=== PATIENT | female | born 1945 | race Hispanic/Latino ===

== ENCOUNTER 2017-10-16 09:51 | Observation (INO) | payer OTHER ==
[~2017-10-16] VITALS: Ht 167.6 cm; Wt 84.4 kg
[2017-10-16 10:36] LABS: APPEARANCE,URINE Clear (CLEAR); BILIRUBIN,URINE Negative (NEGATIVE); COLOR,URINE Yellow (YELLOW); GLUCOSE, URINE (UA) >=1000 mg/dL (NEGATIVE); KETONES,URINE Negative (NEGATIVE); LEUKOCYTE ESTERASE ,URINE Negative (NEGATIVE); NITRATE,URINE Negative (NEGATIVE); OCCULT BLOOD,URINE Nonhemolyzed Trace (NEGATIVE); PH,URINE 5.5 (5.0-8.0); PROTEIN,URINE 300 (NEGATIVE); UROBILINOGEN,URINE 0.2 mg/dL (0.2-1.0)
[2017-10-16 10:44] LABS: BASOPHILS % (AUTO) 0.8 % (0.0-5.0); EOSINOPHILS % (AUTO) 0.9 % (0.0-8.0); HEMATOCRIT 38.1 % (36-48); LYMPHOCYTES % (AUTO) 19.1 % (21.0-51.0); MEAN CORPUSCULAR HEMOGLOBIN 30.1 pg (27.0-33.0); MEAN CORPUSCULAR HGB CONC 33.3 g/dL (32.0-36.0); MEAN CORPUSCULAR VOLUME 90.6 fL (79-99); MONOCYTES % (AUTO) 7.1 % (3.0-13.0); NEUTROPHILS % (AUTO) 72.1 % (40.0-77.0); NUCLEATED RED BLOOD CELLS 0.1 % (0.0-0.19); PLATELET COUNT (AUTO) 362 K/uL (130-400); RED BLOOD CELL COUNT(AUTO) 4.21 MIL/uL (4.00-5.50); RED CELL DISTRIBUTION WIDTH 12.9 % (11.0-15.5); WHITE BLOOD COUNT (AUTO) 10.5 K/uL (4.8-10.8)
[2017-10-16 10:51] LABS: CREATININE 1.4 mg/dL (0.5-1.5)
[2017-10-16 10:56] LABS: INR 0.89 (0.85-1.15); PARTIAL THROMBOPLASTIN TIME 23.4 SEC (26.3-35.5); PROTHROMBIN TIME 9.4 SEC (9.6-11.6)
[2017-10-16 11:07] LABS: ALBUMIN 3.7 g/dL (3.5-5.0); BILIRUBIN,TOTAL 0.4 mg/dL (0.2-1.0); CREATINE KINASE MB 0.6 ng/mL (0.5-3.6); TOTAL PROTEIN, SERUM 7.8 g/dL (6.0-8.3)
[2017-10-16 11:14] LABS: B-TYPE NATRIURETIC PEPTIDE 43 pg/mL (0-100)
[2017-10-16 11:19] LABS: RBC,URINE 0-1 /HPF (0-1); WBC,URINE 0-1 /HPF (0-1)
[2017-10-16 11:20] LABS: BACTERIA,URINE Few /HPF (None Seen)
[2017-10-16] MEDS ORDERED: SODIUM CHLORIDE 0.9% 1000ML 1,000 ML IV SCH (13:58)
[2017-10-16] MEDS ORDERED: ACETAMINOPHEN 325 MG TAB PO PRN (14:00)
[2017-10-16] MEDS ORDERED: HYDRALAZINE HCL 20 MG/ML VIAL IV PRN (14:00)
[2017-10-16] MEDS ORDERED: LACTULOSE 20 GM/30 ML UDCUP PO PRN (14:00)
[2017-10-16] MEDS ORDERED: MORPHINE SULFATE 2 MG/ML 1ML SYG IV PRN (14:00)
[2017-10-16] MEDS ORDERED: POTASSIUM CHLORIDE 10% ELIXIR 20 MEQ/15 ML UDCUP PO PRN (14:00)
[2017-10-16] MEDS ORDERED: LIDOCAINE HCL-MPF 1% 2ML VIAL IVP PRN (14:00)
[2017-10-16] MEDS ORDERED: ONDANSETRON HCL 4 MG/2 ML VIAL IV PRN (14:00)
[2017-10-16] MEDS ORDERED: MAG HYDROX/AL HYDROX/SIMETH ES 30 ML SUSP UDCUP PO PRN (14:00)
[2017-10-16] MEDS ORDERED: GUAIFENESIN-DM 200/20 MG 10 ML PO PRN (14:00)
[2017-10-16] MEDS ORDERED: NITROGLYCERIN 0.4 MG SL TAB SL PRN (14:00)
[2017-10-16] MEDS ORDERED: MORPHINE SULFATE 4 MG/1ML SYG IV PRN (14:00)
[2017-10-16] MEDS ORDERED: POTASSIUM CHLORIDE 20MEQ/100ML 100 ML IV PRN (14:00)
[2017-10-16] MEDS ORDERED: ACETAMINOPHEN-CODEINE 300/30MG TAB PO PRN ×2 (14:00)
[2017-10-16 18:42] VITALS: BP 159/82
[2017-10-16 18:43] LABS: CREATINE KINASE MB < 0.5 ng/mL (0.5-3.6); CREATINE KINASE, TOTAL 159 U/L (21-232); MYOGLOBIN 61 ng/mL (10-92); TROPONIN I < 0.04 ng/mL (0.00-0.06)
[2017-10-16] MEDS ORDERED: GABA-531 PO (18:59)
[2017-10-16] MEDS ORDERED: INSLAN SQ (18:59)
[2017-10-16] MEDS ORDERED: METO-391 PO (18:59)
[2017-10-16] MEDS ORDERED: THIAM100TB PO (18:59)
[2017-10-16] MEDS ORDERED: HYDR25TA PO (18:59)
[2017-10-16] MEDS ORDERED: MAGN250T10 PO (18:59)
[2017-10-16] MEDS ORDERED: ACAR50TA PO (18:59)
[2017-10-16] MEDS ORDERED: OMEP20CA10 PO (18:59)
[2017-10-16] MEDS ORDERED: ASCO500C18 PO (18:59)
[2017-10-16] MEDS ORDERED: FLAX100030 PO (18:59)
[2017-10-16] MEDS ORDERED: IRON-23 PO ×2 (18:59)
[2017-10-16] MEDS ORDERED: LIRA0.6P2 SQ (18:59)
[2017-10-16] MEDS ORDERED: SIMV40TA5 PO (18:59)
[2017-10-16] MEDS ORDERED: LISI10TA7 PO (18:59)
[2017-10-16] MEDS ORDERED: OMEG1CAP2 PO (18:59)
[2017-10-16] MEDS ORDERED: CYAN250014 PO (18:59)
[2017-10-16] MEDS ORDERED: CHOL200012 PO (18:59)
[2017-10-16 20:00] VITALS: BP_SYST 141; BP_SYST 142; BP_SYST 172; BP_DIAS 74; BP_DIAS 77; BP_DIAS 93
[2017-10-16] MEDS: ATORVASTATIN CALCIUM 40 MG TABLET PO SCH (21:17)
[2017-10-16] MEDS: GABAPENTIN 300 MG CAPSULE PO SCH (21:17)
[2017-10-16] MEDS: METOPROLOL TARTRATE 25 MG TAB PO SCH (21:17)
[2017-10-16] MEDS: ACETAMINOPHEN 325 MG TAB PO PRN (21:23)
[2017-10-16] MEDS: INSULIN HUMULIN R 100 UNIT/ML 3ML SQ SCH (21:25)
[2017-10-16] MEDS: INSULIN GLARGINE 100 UNITS/ML 10 ML VIAL SQ SCH (21:27)
[2017-10-17] VITALS (10 sets, daily range): BP systolic 115–183; BP diastolic 48–85
[2017-10-17] MEDS: ACETAMINOPHEN 325 MG TAB PO PRN ×2 (05:02→21:47)
[2017-10-17 05:13] LABS: CREATININE 1.3 mg/dL (0.5-1.5); POTASSIUM 3.5 mmol/L (3.5-5.1)
[2017-10-17] MEDS: INSULIN HUMULIN R 100 UNIT/ML 3ML SQ SCH ×4 (06:24→21:09)
[2017-10-17] MEDS: FAMOTIDINE 20MG TAB 20 MG TAB PO SCH (07:43)
[2017-10-17] MEDS: METOPROLOL TARTRATE 25 MG TAB PO SCH ×2 (07:43→20:59)
[2017-10-17] MEDS: HYDROCHLOROTHIAZIDE 25 MG TABLET PO SCH (07:43)
[2017-10-17] MEDS: POTASSIUM CHLORIDE 20 MEQ ERTAB PO PRN ×2 (07:43→15:19)
[2017-10-17] MEDS: LISINOPRIL 10 MG TABLET PO SCH (07:43)
[2017-10-17] MEDS: ENOXAPARIN SODIUM 40 MG/0.4 ML SYRINGE SQ SCH (07:44)
[2017-10-17] MEDS: GABAPENTIN 300 MG CAPSULE PO SCH ×3 (07:46→20:59)
[2017-10-17] MEDS ORDERED: LISI10TA7 PO (10:36)
[2017-10-17] MEDS: ATORVASTATIN CALCIUM 40 MG TABLET PO SCH (20:59)
[2017-10-17] MEDS: INSULIN GLARGINE 100 UNITS/ML 10 ML VIAL SQ SCH (21:10)
[2017-10-18 00:14] VITALS: BP 100/52
[2017-10-18 03:39] VITALS: BP 109/54
[2017-10-18] MEDS: INSULIN HUMULIN R 100 UNIT/ML 3ML SQ SCH (06:48)
[2017-10-18 07:00] VITALS: BP 128/96
[2017-10-18] MEDS: METOPROLOL TARTRATE 25 MG TAB PO SCH (09:23)
[2017-10-18] MEDS: LISINOPRIL 10 MG TABLET PO SCH (09:23)
[2017-10-18] MEDS: HYDROCHLOROTHIAZIDE 25 MG TABLET PO SCH (09:23)
[2017-10-18] MEDS: GABAPENTIN 300 MG CAPSULE PO SCH (09:23)
[2017-10-18] MEDS: ENOXAPARIN SODIUM 40 MG/0.4 ML SYRINGE SQ SCH (09:24)
[2017-10-18] MEDS: FAMOTIDINE 20MG TAB 20 MG TAB PO SCH (09:26)
== END 2017-10-18 10:50 | disposition home or self-care (01) ==
LOC: EDH 09:51 → EDHIP 13:00 → 3DH 17:53
PROVIDERS: ADMIT Internal Medicine; ATTEND Internal Medicine
DX: R55 Syncope and collapse (principal); E11.9 Type 2 diabetes mellitus without complications; I10 Essential (primary) hypertension; E78.5 Hyperlipidemia, unspecified; Z80.0 Family history of malignant neoplasm of digestive organs; Z82.49 Family history of ischemic heart disease and other diseases of the circulatory system
CPT/HCPCS: 36415 ×2; 70450; 71045; 72125; 73020; 80048; 80053; 81001; 82550 ×2; 82553 ×2; 82948 ×10; 83874 ×2; 83880; 84484 ×2; 85025; 85610; 85730; 93005; 93306; 93880; 96360; 96361 ×2; 96372 ×2; 99285; G0378 ×46; J1650 ×2; J1815 ×4; J7030

== ENCOUNTER 2019-07-11 11:25 | Inpatient (IN) | payer OTHER ==
[2019-07-11] VITALS (20 sets, daily range): BP systolic 84–130; BP diastolic 41–61
[~2019-07-11] VITALS: Ht 162.6 cm; Wt 95.4 kg
[~2019-07-11 11:25] MED LIST: ACAR25TA2 PO; ACAR50TA PO; ASCO-512 PO; ASCO500C18 PO; CETI10TA86 PO; CHOL50004 PO; CYAN250014 PO; FAMO20TA8 PO; FERR-82 PO; FLAX100030 PO; GABA-531 PO; GLIP5TAB11 PO; HYDR25TA PO; INSLAN SQ; LIRA0.6P2 SQ; LISI10TA7 PO; METO-391 PO; NAPR375T6 PO; OMEP-50 PO; ROSU40TA21 PO; SIMV-46 PO; TURM500C7 PO
[2019-07-11 12:27] LABS: INR 1.06 (0.85-1.15); PARTIAL THROMBOPLASTIN TIME 31.9 SEC (26.3-35.5); PROTHROMBIN TIME 11.1 SEC (9.6-11.6)
[2019-07-11 12:31] LABS: BASOPHILS % (AUTO) 0.7 % (0.0-5.0); EOSINOPHILS % (AUTO) 1.4 % (0.0-8.0); HEMATOCRIT 22.3 % (36-48); LYMPHOCYTES % (AUTO) 4.8 % (21.0-51.0); MEAN CORPUSCULAR HEMOGLOBIN 31.9 pg (27.0-33.0); MEAN CORPUSCULAR HGB CONC 32.2 g/dL (32.0-36.0); MONOCYTES % (AUTO) 6.5 % (3.0-13.0); NEUTROPHILS % (AUTO) 86.6 % (40.0-77.0); NUCLEATED RED BLOOD CELLS 0.3 % (0.0-0.19); PLATELET COUNT (AUTO) 112 K/uL (130-400); RED BLOOD CELL COUNT(AUTO) 2.26 MIL/uL (4.00-5.50); RED CELL DISTRIBUTION WIDTH 17.6 % (11.0-15.5); WHITE BLOOD COUNT (AUTO) 12.9 K/uL (4.8-10.8)
[2019-07-11 12:36] LABS: ALBUMIN 1.4 g/dL (3.5-5.0); ASPARTATE AMINOTRANSFERASE 20 U/L (10-37); BILIRUBIN,TOTAL 0.4 mg/dL (0.2-1.0); CARBON DIOXIDE 20 mmol/L (21-32); CHLORIDE 107 mmol/L (101-111); CREATININE 1.8 mg/dL (0.5-1.5); GLOMERULAR FILTR. RATE CALC 29 mL/min (>60); GLUCOSE,RANDOM 127 mg/dL (70-105); POTASSIUM 3.6 mmol/L (3.5-5.1); SODIUM SERUM 138 mmol/L (136-145); TOTAL PROTEIN, SERUM 4.7 g/dL (6.0-8.3)
[2019-07-11 12:42] LABS: UREA NITROGEN, BLOOD 138 mg/dL (7-18)
[2019-07-11 12:49] LABS: ALANINE AMINOTRANSFERASE < 6 U/L (12-78)
[2019-07-11 13:06] LABS: PLATELET MORPHOLOGY COMMENT SLIGHTLY DECREASED
[2019-07-11] MEDS ORDERED: FENTANYL CITRATE PF 50 MCG/1 ML 2ML VIAL ONE ×2 (13:13→14:59)
[2019-07-11] MEDS ORDERED: SODIUM CHLORIDE 0.9% 100 ML IV ONE (13:17)
[2019-07-11] MEDS ORDERED: MEROPENEM 1 GM VIAL ONE (13:17)
--- NOTE | 2019-07-11 15:30 | NUR ---
ADMITTED FROM ER, AAOX2, FOLLOWS SIMPLE COMMANDS, SBP 80'S, DR POLLACK AT BEDSIDE, NEW ORDERTR GIVEN FOR LEVOPHED DRIP AND TO ADMINISTER AN EXTRA UNIT OF PRBC'S, NO FAMILY MEMBERS AVAILABLE AT BEDSIDE, AT THIS TIME.
[2019-07-11] MEDS ORDERED: SODIUM CHLORIDE 0.9% 1000ML 1,000 ML IV SCH (16:00)
[2019-07-11] MEDS ORDERED: PHARMACY COMMUNICATION MISC SCH ×4 (16:15→17:00)
[2019-07-11] MEDS: NOREPINEPHRINE 4MG/NS 250ML 250 ML IV SCH (16:27)
[2019-07-11 16:35] LABS: ABG HCO3 15.4 mmol/L (21.0-28.0); ABG PCO2 33 mmHg (32-45)
[2019-07-11] MEDS ORDERED: HYDROMORPHONE HCL 2 MG/ML VIAL IVP PRN (17:00)
[2019-07-11] MEDS ORDERED: VANCOMYCIN PROTOCOL PER PHARMACY IV SCH ×2 (17:15)
[2019-07-11] MEDS ORDERED: HYDROMORPHONE 1 MG/1 ML AMP IVP PRN (17:15)
[2019-07-11] MEDS ORDERED: VANCOMYCIN 1.5 GM in SODIUM CHLORIDE 0.9% 250 ML IV ONE (17:30)
[2019-07-11] MEDS ORDERED: ALTEPLASE 2 MG/VIAL IV ONE (18:00)
--- NOTE | 2019-07-11 19:00 | NUR ---
BLOOD TRANSFUSION COMPLETED AT THIS TIME, NO SIGNS OF ADVERSE REACTIONS NOTED
[2019-07-11 20:23] LABS: HEMATOCRIT 31.9 % (36-48)
[2019-07-11] MEDS: PANTOPRAZOLE SODIUM 80 MG in SODIUM CHLORIDE 0.9% 100 ML IV SCH (20:28)
[2019-07-11] MEDS: CEFTAZIDIME PENTAHYDRATE 1 GM/VIAL IVP SCH (20:45)
[2019-07-12] VITALS (26 sets, daily range): BP systolic 77–113; BP diastolic 30–51
[2019-07-12] MEDS: PANTOPRAZOLE SODIUM 80 MG in SODIUM CHLORIDE 0.9% 100 ML IV SCH (06:34)
[2019-07-12] MEDS: CEFTAZIDIME PENTAHYDRATE 1 GM/VIAL IVP SCH ×2 (06:39→17:30)
[2019-07-12] MEDS ORDERED: COMPOUND IV REFRIGERATED 1 EACH IVSOLN MISC PRN (12:30)
--- NOTE | 2019-07-12 13:38 | NUR ---
DNR/OOHDNR SW contacted by CM to witness phone conversation with son/jose [facility] [phone] regarding DNR and OOHDNR. Son stated "I reluctantly agreed to give my verbal consent to make pt a DNR." Son stated that pt has been through son much already. Son also agreeable to OOHDNR being emailed to him to sign. SW emailed son an OOHDNR to sign and return so we can get MD to sign.
--- NOTE | 2019-07-12 14:10 | NUR ---
ESTEBAN MATTHEWS SPOKE TO GENNA JORGENSEN OVER THE PHONE. HE LIVES IN [place]. EXPLAINED THAT [facility] IS CHECKING TO SEE IF WE NEED NEW AUTH OR OKAY TO RETURN [facility]. SPOKE TO GLENROY SAID SHE WILL CHECK WITH [facility]. AT THIS POINT PLAN IS TO RETURN TO [facility] ONCE STABLE. Addendum: 07/12/19 at 1416 by GENNA CORONEL RN CM Amended: Links added.
--- NOTE | 2019-07-12 15:51 | NUR ---
ESTEBAN TIM CALLED BACK SAID WILL NEED A NEW REFERRAL AND AUTH. Addendum: 07/12/19 at 1558 by GENNA CORONEL RN CM Amended: Links added.
--- NOTE | 2019-07-12 16:15 | NUR ---
[facility] consult Patient assessed as ordered. Patient has multiple wounds including sacrum, thighs, intertriginous areas and chest; see assessments. [facility] recommendations submitted and report was given to patient's nurse, Benjamin Mehta RN. Patient is on a specialty bed at this time. Addendum: 07/12/19 at 1735 by ALMA RAZA RN/ Amended: Links added.
[2019-07-12] MEDS: VANCOMYCIN 750MG + NS 250 ML IV SCH ×2 (17:29)
[2019-07-12] MEDS: NOREPINEPHRINE 4MG/NS 250ML 250 ML IV SCH (23:06)
[2019-07-13] VITALS (29 sets, daily range): BP systolic 82–129; BP diastolic 30–48
[2019-07-13] MEDS ORDERED: ONDANSETRON HCL 4 MG/2 ML VIAL IVP PRN (00:30)
[2019-07-13] MEDS ORDERED: ACETAMINOPHEN 650 MG SUPPOSITORY RC PRN (00:30)
[2019-07-13] MEDS: PANTOPRAZOLE SODIUM 80 MG in SODIUM CHLORIDE 0.9% 100 ML IV SCH (03:58)
[2019-07-13 04:40] LABS: BASOPHILS % (AUTO) 0.4 % (0.0-5.0); LYMPHOCYTES % (AUTO) 4.4 % (21.0-51.0); MEAN CORPUSCULAR HEMOGLOBIN 30.5 pg (27.0-33.0); MEAN CORPUSCULAR HGB CONC 32.8 g/dL (32.0-36.0); MEAN CORPUSCULAR VOLUME 93.2 fL (79-99); MONOCYTES % (AUTO) 5.4 % (3.0-13.0); NEUTROPHILS % (AUTO) 89.8 % (40.0-77.0); NUCLEATED RED BLOOD CELLS 1.1 % (0.0-0.19); PLATELET COUNT (AUTO) 143 K/uL (130-400); RED BLOOD CELL COUNT(AUTO) 3.22 MIL/uL (4.00-5.50); RED CELL DISTRIBUTION WIDTH 21.2 % (11.0-15.5); WHITE BLOOD COUNT (AUTO) 16.4 K/uL (4.8-10.8)
[2019-07-13 05:45] LABS: POTASSIUM 4.3 mmol/L (3.5-5.1)
[2019-07-13] MEDS: SODIUM BICARB 50MEQ 50ML VIAL IV SCH (08:17)
[2019-07-13] MEDS: CEFTAZIDIME PENTAHYDRATE 1 GM/VIAL IVP SCH ×2 (08:28→20:25)
[2019-07-13] MEDS: HONEY 1 APPL/ML TUBE TP SCH (08:29)
[2019-07-13] MEDS ORDERED: ARTIFICIAL TEARS 3.5 GM OINTMENT OU SCH (09:00)
[2019-07-13] MEDS: SODIUM BICARB 8.4% 50ML SYRING 150 MEQ in DEXTROSE 5%-WATER 850 ML IV SCH ×2 (09:25→16:44)
[2019-07-13] MEDS ORDERED: VASOPRESSIN 20 UNITS in DEXTROSE 5%-WATER 50 ML IV PRN (10:00)
[2019-07-13 10:35] LABS: ALBUMIN 0.9 g/dL (3.5-5.0); AMMONIA 19 umol/L (11-32); ASPARTATE AMINOTRANSFERASE 16 U/L (10-37); BILIRUBIN,TOTAL 0.6 mg/dL (0.2-1.0); CARBON DIOXIDE 21 mmol/L (21-32); GLOMERULAR FILTR. RATE CALC 26 mL/min (>60); TOTAL PROTEIN, SERUM 3.9 g/dL (6.0-8.3)
[2019-07-13 10:42] LABS: ALANINE AMINOTRANSFERASE < 6 U/L (12-78); CHLORIDE 101 mmol/L (101-111); POTASSIUM 3.2 mmol/L (3.5-5.1); SODIUM SERUM 141 mmol/L (136-145)
[2019-07-13 10:44] LABS: GLUCOSE,RANDOM 545 mg/dL (70-105); UREA NITROGEN, BLOOD 119 mg/dL (7-18)
[2019-07-13] MEDS ORDERED: GLUCAGON 1MG KIT 1 MG ML IM PRN (12:30)
--- NOTE | 2019-07-13 12:42 | NUR ---
NO ACUTE CHANGES NOTED- WOUND CARE DONE TO LEFT INNER THIGH,SACRUM, AND LEFT FOOT. PT COMFORTABLE. LETHARGIC. DEBILITATED.
[2019-07-13] MEDS ORDERED: CLINIMIX E 5%-15% 2,000 ML IV SCH (13:00)
[2019-07-13] MEDS ORDERED: M.V.I. IV [ADULT] 10 ML in CLINIMIX E 5%-15% 2,000 ML IV SCH (13:00)
--- NOTE | 2019-07-13 14:10 | NUR ---
PT PLACED ON CONTACT ISOLATION FOR NOW. DR EASTMAN PAGED TO NOTIFY HIM OF CONSULT. 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
--- NOTE | 2019-07-13 14:32 | NUR ---
RD NOTIFICATION - TPN RECOMMENDATIONS Pt admitted for Upper GI Bleed, Hemorrhagic shock. RD notification for TPN recommendations received. RD Recommendations: Clinimix E 02/23 @75mls/hr (1278kcal/90 gm pro). 20% Intralipid MWF. Request weekly lipid lab draw. Recommendations placed in Pt chart. RN notified. RD to continue to monitor. Pt LBM 07/11/19, Tarry stools. Pt monitored labs: Hgb 9.8, Hct 30.0, K 3.2, BUN 119, Cr 2.0, GFR 26, Glu 202, Ca 6.8, ALT <6, Alk 403, Alb 0.9. RD to continue to monitor. Please notify as additional nutrition concerns arise. Thank you. Addendum: 07/13/19 at [address] Amended: Links added.
--- NOTE | 2019-07-13 15:21 | NUR ---
I CALLED DR EASTMAN- HE ASKS THAT WE CONSULT DR MCNAIR . DR RAMACHANDRAN NOTIFIED CONSULT FOR DR MCNAIR ORDERED. DR VALLE MADE BEDSIDE ROUNDS AND SHOW FAXED REPORT FROM [facility] [place] SACRAL WOUND 07/08/19.
--- NOTE | 2019-07-13 16:17 | NUR ---
WOUND CARE NURSE HUGO NOTIFIED OF DR MCNAIR CONSULT. [facility] WOUND CARE OFFICE ALSO CALLED
[2019-07-13] MEDS ORDERED: LIDOCAINE HCL-MPF 1% 2ML VIAL IV PRN (16:30)
--- NOTE | 2019-07-13 16:35 | NUR ---
PT HAS HAD INTERMITTENT RUNS OF V-TACH. NON-SUSTAINED. DR ULRICH NOTIFIED.
[2019-07-13 16:43] LABS: ALBUMIN 0.9 g/dL (3.5-5.0); AMMONIA 18 umol/L (11-32); ASPARTATE AMINOTRANSFERASE 16 U/L (10-37); BILIRUBIN,DIRECT 0.1 mg/dL (0.0-0.3); BILIRUBIN,TOTAL 0.6 mg/dL (0.2-1.0); TOTAL PROTEIN, SERUM 3.9 g/dL (6.0-8.3)
[2019-07-13] MEDS: VANCOMYCIN 750MG + NS 250 ML IV SCH ×2 (16:43)
[2019-07-13 16:47] LABS: MAGNESIUM 1.8 mg/dL (1.80-2.40); POTASSIUM 3.4 mmol/L (3.5-5.1)
[2019-07-13] MEDS: POTASSIUM CHLORIDE 20MEQ/100ML 100 ML IV PRN (17:02)
[2019-07-13] MEDS: MAGNESIUM 2GM PREMIX 50ML 50 ML IV PRN (17:02)
[2019-07-13] MEDS: NOREPINEPHRINE 4MG/NS 250ML 250 ML IV SCH (17:23)
--- NOTE | 2019-07-13 17:25 | NUR ---
POTASSIUM AND MAGNESIUM LOW-BEING REPLACED ,SEE EMAR... DR MCNAIR WILL BE HERE LATE THIS EVENING OR IN THE MORNING
[2019-07-13 17:33] LABS: ALANINE AMINOTRANSFERASE < 6 U/L (12-78)
[2019-07-13] MEDS: INSULIN HUMULIN R 100 UNIT/ML 3ML SQ SCH (17:48)
--- NOTE | 2019-07-13 19:15 | NUR ---
HAND OFF REPORT GIVEN TO ROM JONES
--- NOTE | 2019-07-13 20:15 | NUR ---
ASSESSMENT PT RESTING IN BED, IV FLUIDS INFUSING WITHOUT DIFFICULTY. TRACH #8 WITH VENT SETTINGS AC-18-40%-500 PEEP 5. 20FR PEG CLAMPED. 16FR RUDD CATH TO BEDSIDE DRAINAGE. RECTAL TUBE IN PLACE AND ACTIVE. BED ON ROTATION MODE. HOB AT 30 DEGREES. RIGHT AKA WITH DRSG C/D/I. LEFT LEG WITH DRSG C/D/I WITH WAFFLE BOOT IN PLACE. ASSESSMENT COMPLETED, SEE FLOW SHEET, WHITE BOARD UP-DATED. BEDSIDE MONITOR PARAMETERS REVIEWED AND ADJUSTED. CALLBELL REVIEWED AND WITHIN REACH.
[2019-07-13] MEDS: PANTOPRAZOLE 40 MG/VIAL IVP SCH (20:26)
[2019-07-13] MEDS: ARTIFICIAL TEARS 3.5 GM OINTMENT OU SCH (20:28)
[2019-07-14] VITALS (29 sets, daily range): BP systolic 81–152; BP diastolic 38–84
--- NOTE | 2019-07-14 | NUR ---
ASSESSMENT PT RESTING IN BED, IV FLUIDS INFUSING WITHOUT DIFFICULTY. TRACH #8 WITH VENT SETTINGS AC-18-40%-500 PEEP 5. 20FR PEG CLAMPED. 16FR RUDD CATH TO BEDSIDE DRAINAGE. RECTAL TUBE IN PLACE AND ACTIVE. BED ON ROTATION MODE. HOB AT 30 DEGREES. ASSESSMENT COMPLETED, SEE FLOW SHEET. BEDSIDE MONITOR PARAMETERS REVIEWED AND ADJUSTED. CALLBELL WITHIN REACH.
[2019-07-14] MEDS: NOREPINEPHRINE 4MG/NS 250ML 250 ML IV SCH ×4 (00:07→20:12)
[2019-07-14] MEDS: SODIUM BICARB 8.4% 50ML SYRING 150 MEQ in DEXTROSE 5%-WATER 850 ML IV SCH ×2 (00:08→05:52)
[2019-07-14] MEDS: SODIUM BICARB 50MEQ 50ML VIAL IV SCH (00:08)
[2019-07-14] MEDS: INSULIN HUMULIN R 100 UNIT/ML 3ML SQ SCH ×4 (00:14→17:27)
[2019-07-14 03:43] LABS: CREATININE 2.3 mg/dL (0.5-1.5); PHOSPHORUS 4.5 mg/dL (2.5-4.9); POTASSIUM 3.6 mmol/L (3.5-5.1)
[2019-07-14 04:05] LABS: ABG BASE EXCESS -5.6 mmol/L (-2.0-3.0); ABG HCO3 16.8 mmol/L (21.0-28.0); ABG OXYGEN SATURATION 97.4 % (95.0-99.0); ABG PCO2 26 mmHg (32-45)
[2019-07-14] MEDS: CEFTAZIDIME PENTAHYDRATE 1 GM/VIAL IVP SCH ×2 (06:41→17:43)
--- NOTE | 2019-07-14 07:00 | NUR ---
BEDSIDE REPORT BEDSIDE REPORT GIVEN TO STEPHANIE JONES.
[2019-07-14] MEDS ORDERED: M.V.I. IV [ADULT] 10 ML in CLINIMIX E 5%-15% 2,000 ML IV SCH (09:00)
[2019-07-14] MEDS: PANTOPRAZOLE 40 MG/VIAL IVP SCH ×2 (09:20→20:13)
[2019-07-14] MEDS: ARTIFICIAL TEARS 3.5 GM OINTMENT OU SCH ×2 (09:20→20:14)
[2019-07-14] MEDS: HONEY 1 APPL/ML TUBE TP SCH (09:22)
[2019-07-14] MEDS: INSULIN GLARGINE 100 UNITS/ML 10 ML VIAL SQ SCH ×2 (09:24→21:27)
--- NOTE | 2019-07-14 14:13 | NUR ---
PT STATUS UNCHANGED. TPN STOPPED BY DR RAMACHANDRAN DUE TO ELEVATED BLOOD GLUCOSE. I HAVE PAGED DR HOLLIS AND CALLED HER OFFICE , MD HAS NOT RETURNED PHONE CALLS.
--- NOTE | 2019-07-14 15:17 | NUR ---
ESTEBAN PLAN RECEIVED ORDER FOR [facility]. INFO FAXED. KASSIE TIM KNOW. PACKET IN CHART. WILL NEED EMS FOR TRANSPORT. Addendum: 07/14/19 at 1519 by GENNA CORONEL RN CM Amended: Links added.
--- NOTE | 2019-07-14 16:13 | NUR ---
WOUND CARE /DRESSING CHANGES PERFORMED- TO SACRAL DECUBITUS, LEFT INNER THIGH, ABDOMINAL FOLDS,ARA AREAS, RT AKA STUMP. BP DROPS- LEVOPHED INCREASED TO 10MCG. BP 81/38. RECTAL TUBE DISLODGED- NOT REPLACED. NO CALL BACK FROM DR SERRATO
--- NOTE | 2019-07-14 16:39 | NUR ---
DR HOLLIS RETURNED CALL -WILL TUBE FEED PT
[2019-07-14] MEDS: VANCOMYCIN 750MG + NS 250 ML IV SCH ×2 (16:41)
[2019-07-14] MEDS: SODIUM BICARBONATE 650 MG TAB PO SCH ×2 (16:41→20:13)
--- NOTE | 2019-07-14 19:30 | NUR ---
ASSESSMENT PT RESTING IN BED, LEVOPHED INFUSING WITHOUT DIFFICULTY. TRACH #8 WITH VENT SETTINGS AC-18-40%-500 PEEP 5. 20FR PEG CLAMPED. 16FR RUDD CATH TO BEDSIDE DRAINAGE. BED ON ROTATION MODE. HOB AT 30 DEGREES. RIGHT AKA WITH DRSG C/D/I. LEFT LEG WITH DRSG C/D/I WITH WAFFLE BOOT IN PLACE. ASSESSMENT COMPLETED, SEE FLOW SHEET, WHITE BOARD UP-DATED. BEDSIDE MONITOR PARAMETERS REVIEWED. CALLBELL REVIEWED AND WITHIN REACH.
[2019-07-14 20:18] LABS: HEMATOCRIT 27.7 % (36-48)
[2019-07-15] VITALS (35 sets, daily range): BP systolic 90–151; BP diastolic 42–75
--- NOTE | 2019-07-15 00:02 | NUR ---
ASSESSMENT PT RESTING IN BED, IV FLUIDS INFUSING WITHOUT DIFFICULTY. TRACH #8 WITH VENT SETTINGS AC-18-40%-500 PEEP 5. 20FR PEG CLAMPED. 16FR RUDD CATH TO BEDSIDE DRAINAGE. BED ON ROTATION MODE. HOB AT 30 DEGREES. ASSESSMENT COMPLETED, SEE FLOW SHEET. CALLBELL WITHIN REACH.
[2019-07-15] MEDS: INSULIN HUMULIN R 100 UNIT/ML 3ML SQ SCH ×5 (00:58→23:23)
[2019-07-15 04:26] LABS: BASOPHILS % (AUTO) 0.6 % (0.0-5.0); EOSINOPHILS % (AUTO) 0.6 % (0.0-8.0); HEMATOCRIT 28.2 % (36-48); LYMPHOCYTES % (AUTO) 3.6 % (21.0-51.0); MEAN CORPUSCULAR HEMOGLOBIN 30.4 pg (27.0-33.0); MEAN CORPUSCULAR HGB CONC 34.2 g/dL (32.0-36.0); MEAN CORPUSCULAR VOLUME 88.8 fL (79-99); MONOCYTES % (AUTO) 4.4 % (3.0-13.0); NEUTROPHILS % (AUTO) 90.8 % (40.0-77.0); PLATELET COUNT (AUTO) 136 K/uL (130-400); RED BLOOD CELL COUNT(AUTO) 3.17 MIL/uL (4.00-5.50); RED CELL DISTRIBUTION WIDTH 20.2 % (11.0-15.5); WHITE BLOOD COUNT (AUTO) 16.1 K/uL (4.8-10.8)
[2019-07-15 04:38] LABS: INR 0.95 (0.85-1.15); PARTIAL THROMBOPLASTIN TIME 31.6 SEC (26.3-35.5)
[2019-07-15 04:42] LABS: BILIRUBIN,TOTAL 0.4 mg/dL (0.2-1.0); CREATININE 2.2 mg/dL (0.5-1.5); MAGNESIUM 1.8 mg/dL (1.80-2.40); PHOSPHORUS 4.2 mg/dL (2.5-4.9); POTASSIUM 3.5 mmol/L (3.5-5.1)
[2019-07-15 05:34] LABS: ABG BASE EXCESS -2.9 mmol/L (-2.0-3.0); ABG HCO3 20.8 mmol/L (21.0-28.0); ABG OXYGEN SATURATION 96.6 % (95.0-99.0); ABG PCO2 33 mmHg (32-45)
[2019-07-15] MEDS: CEFTAZIDIME PENTAHYDRATE 1 GM/VIAL IVP SCH ×2 (06:36→18:41)
[2019-07-15] MEDS: INSULIN GLARGINE 100 UNITS/ML 10 ML VIAL SQ SCH ×2 (06:37→20:56)
--- NOTE | 2019-07-15 07:05 | NUR ---
BEDSIDE REPORT BEDSIDE REPORT GIVEN TO LUCITA JONES, CARE ENDORSED.
[2019-07-15] MEDS: NOREPINEPHRINE 4MG/NS 250ML 250 ML IV SCH ×2 (07:27→15:54)
[2019-07-15] MEDS: SODIUM BICARBONATE 650 MG TAB PO SCH ×3 (08:31→21:16)
[2019-07-15] MEDS: PANTOPRAZOLE 40 MG/VIAL IVP SCH ×2 (08:31→21:16)
[2019-07-15] MEDS: ARTIFICIAL TEARS 3.5 GM OINTMENT OU SCH ×2 (08:32→22:08)
[2019-07-15] MEDS: HONEY 1 APPL/ML TUBE TP SCH (08:32)
--- NOTE | 2019-07-15 08:45 | NUR ---
ASSESSED PER CHARTING. PATIENT OCCASIONALLY SHAKES HEAD NO BUT DOES NOT FOLLOW COMMANDS. ALL DRESSINGS CHANGED WITH Mitchell NARAYAN RN. PATIENT REPOSITIONED. ORAL CARE AND ARA/CATHETER CARE DONE. BED ON ROTATION MODE.
[2019-07-15] MEDS ORDERED: FAT EMULSIONS 20% 250ML 250 ML IV SCH (10:00)
--- NOTE | 2019-07-15 10:48 | NUR ---
PATIENT'S DAUGHTER IN LAW CAME TO NURSES STATION QUESTIONING WHY RECTAL TUBE WAS NOT REPLACED. EXPLAINED PATIENT IS NOT HAVING WATERY BMS, TUBE WILL BE PLACED IF NEEDED. FAMILY MEMBER STARTED QUESTIONING WHY WE STOPPED ALL MEDICATIONS AND STATING THAT SHE FEELS LIKE WE ARE NOT TRYING TO CURE THE PATIENT. WENT OVER ALL MEDICATIONS AND BODY SYSTEMS TO DESCRIBE WHAT WE ARE DOING, MEDICATIONS AND PLANS. FAMILY MEMBER STATED DR RAMACHANDRAN TOLD HER THE ANESTHESIA WILL NEED TO BE METABOLIZED OVER TIME BUT SHE CONTINUED TO ASK WHY AREN'T WE GIVING MEDICATIONS TO FIX HER. SHE ASKED WHY AREN'T WE RESTARTING HD TREATMENTS, EXPLAINED THAT IS UP TO NEPHROLOGY TO DECIDE IF THE PATIENT IS A CANDIDATE. Roopa RUTLEDGE ACTIVITY THERAPY SPECIALIST CAME IN ROOM AND ATTEMPTED TO EXPLAIN PLAN OF CARE AND FAMILY MEMBERS TOLD HER TO STOP. OFFERED NURSING ADMINISTRATION TO VISIT WITH FAMILY, THEY DECLINED.
[2019-07-15] MEDS: DEXTROSE 50%-WATER 50 ML DISP.SYRIN IV PRN ×2 (11:50→17:06)
[2019-07-15] MEDS: METOCLOPRAMIDE 10 MG/2 ML VIAL IVP SCH ×2 (11:50→17:04)
--- NOTE | 2019-07-15 12:26 | NUR ---
Nutrition f/u: TF consult received. Recommend Vital AF 1.2 goal rate of 60ml/hr, 110ml free water Q3H for optimal nutrition. Monitor I/O, consult PAUL as nutrition concerns arise. Addendum: 07/15/19 at [address] Amended: Links added.
[2019-07-15] MEDS: MIDODRINE HCL 5 MG TABLET PO SCH ×2 (15:07→21:16)
[2019-07-15] MEDS: VANCOMYCIN 750MG + NS 250 ML IV SCH ×2 (16:22)
[2019-07-15] MEDS ORDERED: DEXTROSE 5%-WATER 1,000 ML IV SCH (17:30)
[2019-07-16] VITALS (30 sets, daily range): BP systolic 80–111; BP diastolic 37–54
[2019-07-16] MEDS: METOCLOPRAMIDE 10 MG/2 ML VIAL IVP SCH ×3 (00:35→22:32)
[2019-07-16] MEDS: MIDODRINE HCL 5 MG TABLET PO SCH ×3 (05:10→22:33)
[2019-07-16 05:33] LABS: MEAN CORPUSCULAR HEMOGLOBIN 30.5 pg (27.0-33.0); MEAN CORPUSCULAR HGB CONC 33.8 g/dL (32.0-36.0); MEAN CORPUSCULAR VOLUME 90.1 fL (79-99); NUCLEATED RED BLOOD CELLS 0.5 % (0.0-0.19); PLATELET COUNT (AUTO) 104 K/uL (130-400); RED BLOOD CELL COUNT(AUTO) 2.77 MIL/uL (4.00-5.50); RED CELL DISTRIBUTION WIDTH 19.9 % (11.0-15.5); WHITE BLOOD COUNT (AUTO) 15.3 K/uL (4.8-10.8)
[2019-07-16 05:43] LABS: CREATININE 2.2 mg/dL (0.5-1.5); MAGNESIUM 1.8 mg/dL (1.80-2.40); POTASSIUM 3.3 mmol/L (3.5-5.1)
[2019-07-16] MEDS: INSULIN HUMULIN R 100 UNIT/ML 3ML SQ SCH ×3 (06:00→17:48)
[2019-07-16] MEDS: INSULIN GLARGINE 100 UNITS/ML 10 ML VIAL SQ SCH ×2 (07:30→22:36)
[2019-07-16] MEDS: CEFTAZIDIME PENTAHYDRATE 1 GM/VIAL IVP SCH ×2 (07:59→22:32)
[2019-07-16] MEDS: SODIUM BICARBONATE 650 MG TAB PO SCH ×3 (08:01→22:46)
[2019-07-16] MEDS: HONEY 1 APPL/ML TUBE TP SCH (08:02)
[2019-07-16] MEDS: ARTIFICIAL TEARS 3.5 GM OINTMENT OU SCH ×2 (08:02→22:33)
[2019-07-16] MEDS: PANTOPRAZOLE 40 MG/VIAL IVP SCH ×2 (09:12→22:32)
--- NOTE | 2019-07-16 10:05 | NUR ---
PATIENT WITH 3RD LOOSE BM THIS MORNING, FMS INSERTED PER ORDER. PATIENT TOLERATED WELL.
[2019-07-16] MEDS: NOREPINEPHRINE 4MG/NS 250ML 250 ML IV SCH (15:58)
[2019-07-16] MEDS: VANCOMYCIN 750MG + NS 250 ML IV SCH ×2 (16:13)
[2019-07-17] VITALS (36 sets, daily range): BP systolic 73–117; BP diastolic 31–59
[2019-07-17] MEDS: INSULIN HUMULIN R 100 UNIT/ML 3ML SQ SCH ×4 (02:12→17:29)
[2019-07-17 05:30] LABS: BASOPHILS % (AUTO) 0.6 % (0.0-5.0); EOSINOPHILS % (AUTO) 1.1 % (0.0-8.0); HEMATOCRIT 26.4 % (36-48); LYMPHOCYTES % (AUTO) 3.3 % (21.0-51.0); MEAN CORPUSCULAR HEMOGLOBIN 29.8 pg (27.0-33.0); MEAN CORPUSCULAR VOLUME 90.4 fL (79-99); MONOCYTES % (AUTO) 4.5 % (3.0-13.0); NEUTROPHILS % (AUTO) 90.5 % (40.0-77.0); NUCLEATED RED BLOOD CELLS 0.5 % (0.0-0.19); PLATELET COUNT (AUTO) 117 K/uL (130-400); RED BLOOD CELL COUNT(AUTO) 2.93 MIL/uL (4.00-5.50); RED CELL DISTRIBUTION WIDTH 20.6 % (11.0-15.5); WHITE BLOOD COUNT (AUTO) 17.3 K/uL (4.8-10.8)
[2019-07-17] MEDS: CEFTAZIDIME PENTAHYDRATE 1 GM/VIAL IVP SCH ×2 (05:32→18:30)
[2019-07-17] MEDS: MIDODRINE HCL 5 MG TABLET PO SCH ×3 (05:32→21:47)
[2019-07-17 05:43] LABS: ALBUMIN 0.8 g/dL (3.5-5.0); ASPARTATE AMINOTRANSFERASE 18 U/L (10-37); BILIRUBIN,TOTAL 0.4 mg/dL (0.2-1.0); CARBON DIOXIDE 18 mmol/L (21-32); CHLORIDE 108 mmol/L (101-111); CREATININE 2.3 mg/dL (0.5-1.5); GLOMERULAR FILTR. RATE CALC 22 mL/min (>60); GLUCOSE,RANDOM 196 mg/dL (70-105); PHOSPHORUS 4.3 mg/dL (2.5-4.9); SODIUM SERUM 143 mmol/L (136-145); TOTAL PROTEIN, SERUM 4.5 g/dL (6.0-8.3)
[2019-07-17 05:48] LABS: ALANINE AMINOTRANSFERASE < 6 U/L (12-78)
[2019-07-17 05:50] LABS: POTASSIUM 2.7 mmol/L (3.5-5.1)
[2019-07-17 05:51] LABS: UREA NITROGEN, BLOOD 150 mg/dL (7-18)
[2019-07-17] MEDS: POTASSIUM CHLORIDE 20MEQ/100ML 100 ML IV PRN ×2 (06:09→08:34)
[2019-07-17] MEDS: MAGNESIUM 2GM PREMIX 50ML 50 ML IV PRN (06:09)
[2019-07-17] MEDS: INSULIN GLARGINE 100 UNITS/ML 10 ML VIAL SQ SCH ×2 (07:10→21:00)
[2019-07-17 08:15] LABS: ABG BASE EXCESS -9.6 mmol/L (-2.0-3.0); ABG HCO3 14.5 mmol/L (21.0-28.0); ABG OXYGEN SATURATION 97.1 % (95.0-99.0); ABG PCO2 28 mmHg (32-45)
[2019-07-17] MEDS: SODIUM BICARBONATE 650 MG TAB PO SCH ×3 (08:33→21:47)
[2019-07-17] MEDS: METOCLOPRAMIDE 10 MG/2 ML VIAL IVP SCH ×2 (08:33→21:47)
[2019-07-17] MEDS: PANTOPRAZOLE 40 MG/VIAL IVP SCH ×2 (08:33→21:46)
[2019-07-17] MEDS: ARTIFICIAL TEARS 3.5 GM OINTMENT OU SCH ×2 (08:34→21:59)
[2019-07-17] MEDS: HONEY 1 APPL/ML TUBE TP SCH (08:35)
[2019-07-17] MEDS ORDERED: SODIUM BICARB 50MEQ 50ML VIAL IV SCH (08:45)
[2019-07-17] MEDS: NOREPINEPHRINE 4MG/NS 250ML 250 ML IV SCH (13:43)
[2019-07-17] MEDS: VANCOMYCIN 750MG + NS 250 ML IV SCH ×2 (16:00)
--- NOTE | 2019-07-17 16:17 | NUR ---
WOUND CARE DONE
[2019-07-18] VITALS (29 sets, daily range): BP systolic 84–108; BP diastolic 30–53
[2019-07-18] MEDS ORDERED: NOREPINEPHRINE BITARTRATE 1 MG/1 ML ML IV ONE (03:08)
[2019-07-18] MEDS ORDERED: SODIUM CHLORIDE 0.9% 250 ML IV ONE ×2 (03:09→13:10)
[2019-07-18] MEDS: MIDODRINE HCL 5 MG TABLET PO SCH ×3 (04:27→22:03)
[2019-07-18] MEDS: CEFTAZIDIME PENTAHYDRATE 1 GM/VIAL IVP SCH ×2 (06:04→17:57)
[2019-07-18] MEDS: INSULIN GLARGINE 100 UNITS/ML 10 ML VIAL SQ SCH ×2 (06:06→19:59)
[2019-07-18] MEDS: INSULIN HUMULIN R 100 UNIT/ML 3ML SQ SCH ×4 (06:07→17:56)
[2019-07-18 07:42] LABS: BASOPHILS % (AUTO) 0.4 % (0.0-5.0); EOSINOPHILS % (AUTO) 0.3 % (0.0-8.0); HEMATOCRIT 23.5 % (36-48); LYMPHOCYTES % (AUTO) 3.7 % (21.0-51.0); MEAN CORPUSCULAR HEMOGLOBIN 30.1 pg (27.0-33.0); MEAN CORPUSCULAR HGB CONC 32.5 g/dL (32.0-36.0); MEAN CORPUSCULAR VOLUME 92.7 fL (79-99); MONOCYTES % (AUTO) 5.4 % (3.0-13.0); NEUTROPHILS % (AUTO) 90.2 % (40.0-77.0); NUCLEATED RED BLOOD CELLS 0.8 % (0.0-0.19); PLATELET COUNT (AUTO) 114 K/uL (130-400); RED BLOOD CELL COUNT(AUTO) 2.54 MIL/uL (4.00-5.50); RED CELL DISTRIBUTION WIDTH 20.8 % (11.0-15.5); WHITE BLOOD COUNT (AUTO) 19.5 K/uL (4.8-10.8)
[2019-07-18 07:58] LABS: CREATININE 2.2 mg/dL (0.5-1.5); POTASSIUM 3.3 mmol/L (3.5-5.1)
[2019-07-18] MEDS ORDERED: COMPOUND IV MISC 1 EACH IVSOLN MISC PRN (09:00)
[2019-07-18] MEDS: SODIUM BICARBONATE 650 MG TAB PO SCH ×3 (09:08→20:08)
[2019-07-18] MEDS: METOCLOPRAMIDE 10 MG/2 ML VIAL IVP SCH ×2 (09:08→20:07)
[2019-07-18] MEDS: PANTOPRAZOLE 40 MG/VIAL IVP SCH ×2 (09:08→20:07)
[2019-07-18] MEDS: ARTIFICIAL TEARS 3.5 GM OINTMENT OU SCH ×2 (09:09→20:07)
[2019-07-18] MEDS: HONEY 1 APPL/ML TUBE TP SCH (09:10)
[2019-07-18] MEDS: IRON SUCROSE COMPLEX 100 MG in SODIUM CHLORIDE 0.9% 50 ML IV SCH (09:20)
[2019-07-18] MEDS: POTASSIUM CHLORIDE 20MEQ/100ML 100 ML IV PRN (09:29)
[2019-07-18] MEDS: EPOETIN ALFA 10,000 UNIT/ML VIAL SQ SCH (10:02)
--- NOTE | 2019-07-18 11:53 | NUR ---
UNABLE TO COLLECT ABG- DIFFICULT DRAW
[2019-07-18] MEDS: NOREPINEPHRINE 4MG/NS 250ML 250 ML IV SCH ×2 (12:21→19:07)
--- NOTE | 2019-07-18 12:38 | NUR ---
GASTRIC RESIDUALS HIGH- CONTENTS ARE BLOOD TINGED (PINK). DR DUARTE SANCHEZD
--- NOTE | 2019-07-18 12:46 | NUR ---
DR RAMACHANDRAN RETURNED PAGE-INFORMED OF FINDINGS (RESIDUALS BLOOD TINGED) TUBE FEEDS OFF
[2019-07-18] MEDS: VANCOMYCIN 750MG + NS 250 ML IV SCH ×2 (14:12)
--- NOTE | 2019-07-18 14:53 | NUR ---
RD FOLLOW UP PT WITH HIGH TUBE FEEDING RESIDUALS (400MLS) WITH VITAL AF 1.2 @ 60MLS/HR. TUBE FEEDING HELD AT THIS TIME. IF HIGH RESIDUALS CONTINUE, RECOMMEND LOW RATE TPN. RD TO CONTINUE TO MONITOR. PT WITH HISTORY OF HIGH RESIDUALS WITH CONTINUOUS AND BOLUS TUBE FEEDINGS. PT ALSO WITH HISTORY OF HIGH BLOOD GLUCOSE LEVELS WITH TPN, PER RN. PT WITH GASTRIC ULCER PER EMR. PT LBM 07/17/19. PT MONITORED LABS: H&H 7.6/23.5, K 3.3, CO2 17, BUN 153, CR 2.2, GFR 23, GLU 184, CA 7.4, ALB 0.8. RD TO CONTINUE TO MONITOR. PLEASE NOTIFY ADDITIONAL CONCERNS ARISE. THANK YOU. Addendum: 07/18/19 at [address] Amended: Links added.
[2019-07-18 17:38] LABS: HEMATOCRIT 27.7 % (36-48)
[2019-07-19] VITALS (24 sets, daily range): BP systolic 84–136; BP diastolic 34–69
[2019-07-19] MEDS: NOREPINEPHRINE 4MG/NS 250ML 250 ML IV SCH ×4 (00:30→19:43)
[2019-07-19 03:57] LABS: HEMATOCRIT 26.6 % (36-48); MEAN CORPUSCULAR HEMOGLOBIN 30.1 pg (27.0-33.0); MEAN CORPUSCULAR HGB CONC 33.7 g/dL (32.0-36.0); MEAN CORPUSCULAR VOLUME 89.4 fL (79-99); NUCLEATED RED BLOOD CELLS 2.3 % (0.0-0.19); PLATELET COUNT (AUTO) 120 K/uL (130-400); RED BLOOD CELL COUNT(AUTO) 2.98 MIL/uL (4.00-5.50); RED CELL DISTRIBUTION WIDTH 18.9 % (11.0-15.5); WHITE BLOOD COUNT (AUTO) 16.7 K/uL (4.8-10.8)
[2019-07-19 04:00] LABS: % IRON SATURATION 116.6 % (22-44); INR 0.97 (0.85-1.15); PROTHROMBIN TIME 10.2 SEC (9.6-11.6)
[2019-07-19 04:42] LABS: ABG BASE EXCESS -7.4 mmol/L (-2.0-3.0); ABG HCO3 15.9 mmol/L (21.0-28.0); ABG PCO2 27 mmHg (32-45)
[2019-07-19] MEDS: MIDODRINE HCL 5 MG TABLET PO SCH ×3 (05:25→22:23)
[2019-07-19] MEDS: INSULIN GLARGINE 100 UNITS/ML 10 ML VIAL SQ SCH ×2 (05:55→21:05)
[2019-07-19] MEDS: INSULIN HUMULIN R 100 UNIT/ML 3ML SQ SCH ×4 (05:55→19:44)
[2019-07-19] MEDS: CEFTAZIDIME PENTAHYDRATE 1 GM/VIAL IVP SCH ×2 (06:37→19:41)
[2019-07-19 06:38] LABS: ALBUMIN 0.9 g/dL (3.5-5.0); ASPARTATE AMINOTRANSFERASE 21 U/L (10-37); BILIRUBIN,TOTAL 0.5 mg/dL (0.2-1.0); CARBON DIOXIDE 17 mmol/L (21-32); CHLORIDE 109 mmol/L (101-111); CREATININE 2.3 mg/dL (0.5-1.5); GLOMERULAR FILTR. RATE CALC 22 mL/min (>60); GLUCOSE,RANDOM 142 mg/dL (70-105); POTASSIUM 3.8 mmol/L (3.5-5.1); SODIUM SERUM 146 mmol/L (136-145); TOTAL PROTEIN, SERUM 4.7 g/dL (6.0-8.3)
[2019-07-19 06:40] LABS: ALANINE AMINOTRANSFERASE < 6 U/L (12-78)
[2019-07-19 06:41] LABS: UREA NITROGEN, BLOOD 170 mg/dL (7-18)
--- NOTE | 2019-07-19 07:19 | NUR ---
ASSESSMENT Very limited response to verbal/tactile stimulation. Briefly opened eyes in response to verbal/tactile stimulation but did not focus on caregiver or follow commands. ST on tele with strong apical heart tones. VS as recorded. Remains on IV levophed gtt @10mcg/min. Vent settings as recorded. Trache site clean. Coarse breath sounds throughout. No secretions obtained when suctioned. Abd obese - no appreciable bowel sounds with auscultation - auscultation x5 minutes. PEG in-situ - gentle aspiration for residual check - obtained approximately 10ml of dark brown/green stomach content/returned. F/C patent - cloudy urine. Taylor/carmen-care rendered. Taylor secured with leg strap - stat lock removed. Pt with very poor skin turgor throughout. LUE PICC line in use - all ports patent. Significant generalized edema. Serous fluid oozing from skin integrity interruptions. Rectal tube remains in use - minimal dark green stool. Rt AKA stump drsg in place. Left foot drsg clean, dry. Waffle boot in use to LLE. Bed rotation ON. HOB @30-degrees. Assessment completed/recorded. At present, no family at bedside.
[2019-07-19] MEDS: METOCLOPRAMIDE 10 MG/2 ML VIAL IVP SCH ×2 (10:16→20:44)
[2019-07-19] MEDS: PANTOPRAZOLE 40 MG/VIAL IVP SCH ×2 (10:16→21:01)
[2019-07-19] MEDS: SODIUM BICARBONATE 650 MG TAB PO SCH ×3 (10:17→21:01)
[2019-07-19] MEDS: ARTIFICIAL TEARS 3.5 GM OINTMENT OU SCH ×2 (10:17→21:01)
[2019-07-19] MEDS: IRON SUCROSE COMPLEX 100 MG in SODIUM CHLORIDE 0.9% 50 ML IV SCH (10:18)
[2019-07-19] MEDS: HONEY 1 APPL/ML TUBE TP SCH (11:05)
--- NOTE | 2019-07-19 11:55 | NUR ---
MED MANAGEMENT SS insulin not administered as pt is currently not receiving PEG nutrition. Will continue to monitor blood glucose per protocol.
--- NOTE | 2019-07-19 14:15 | NUR ---
GI Consult phoned in to 's office regarding current finding of stomach content with apparent blood from PEG tube. Awaiting return call from MD. This finding has been reported to critical care MD. Family member not currently at bedside.
--- NOTE | 2019-07-19 14:15 | NUR ---
MED MANAGEMENT 1400 PEG meds not administered secondary to PEG output previously documented.
[2019-07-19] MEDS: VANCOMYCIN 750MG + NS 250 ML IV SCH ×2 (16:00)
[2019-07-19] MEDS: [UNRECOGNIZED DRUG - NUTRITION] IV SCH (16:05)
--- NOTE | 2019-07-19 16:07 | NUR ---
GI FOLLOW UP Spoke to by phone - per MD, pt/current issue to be referred to . As instructed, phone call placed to 's office - needed information provided to scow hand.
[2019-07-19 16:33] LABS: HEMATOCRIT 24.2 % (36-48)
[2019-07-19 18:18] LABS: BASOPHILS % (AUTO) 0.7 % (0.0-5.0); EOSINOPHILS % (AUTO) 2.6 % (0.0-8.0); HEMATOCRIT 29.9 % (36-48); LYMPHOCYTES % (AUTO) 13.2 % (21.0-51.0); MEAN CORPUSCULAR HEMOGLOBIN 30.6 pg (27.0-33.0); MEAN CORPUSCULAR HGB CONC 34.1 g/dL (32.0-36.0); MEAN CORPUSCULAR VOLUME 89.7 fL (79-99); MONOCYTES % (AUTO) 3.4 % (3.0-13.0); NEUTROPHILS % (AUTO) 80.1 % (40.0-77.0); PLATELET COUNT (AUTO) 167 K/uL (130-400); RED BLOOD CELL COUNT(AUTO) 3.33 MIL/uL (4.00-5.50); RED CELL DISTRIBUTION WIDTH 13.9 % (11.0-15.5); WHITE BLOOD COUNT (AUTO) 14.3 K/uL (4.8-10.8)
[2019-07-19 18:31] LABS: CREATININE 0.6 mg/dL (0.5-1.5); POTASSIUM 3.3 mmol/L (3.5-5.1)
[2019-07-19 18:32] LABS: INR 1.09 (0.85-1.15); PROTHROMBIN TIME 11.4 SEC (9.6-11.6)
[2019-07-19] MEDS ORDERED: METOCLOPRAMIDE 10 MG/2 ML VIAL IVP SCH (18:38)
[2019-07-19] MEDS: POTASSIUM CHLORIDE 20MEQ/100ML 100 ML IV PRN ×2 (19:42→22:23)
[2019-07-20] VITALS (62 sets, daily range): BP systolic 70–136; BP diastolic 32–74
[2019-07-20] MEDS: INSULIN HUMULIN R 100 UNIT/ML 3ML SQ SCH ×5 (00:26→21:14)
[2019-07-20 04:14] LABS: ALBUMIN 0.8 g/dL (3.5-5.0); ASPARTATE AMINOTRANSFERASE 15 U/L (10-37); BILIRUBIN,TOTAL 0.4 mg/dL (0.2-1.0); CARBON DIOXIDE 14 mmol/L (21-32); CHLORIDE 108 mmol/L (101-111); CREATININE 2.6 mg/dL (0.5-1.5); GLOMERULAR FILTR. RATE CALC 19 mL/min (>60); GLUCOSE,RANDOM 398 mg/dL (70-105); PHOSPHORUS 4.9 mg/dL (2.5-4.9); POTASSIUM 4.4 mmol/L (3.5-5.1); SODIUM SERUM 141 mmol/L (136-145); TOTAL PROTEIN, SERUM 4.6 g/dL (6.0-8.3)
[2019-07-20 04:34] LABS: ALANINE AMINOTRANSFERASE < 6 U/L (12-78)
[2019-07-20 04:35] LABS: UREA NITROGEN, BLOOD 162 mg/dL (7-18)
[2019-07-20] MEDS: NOREPINEPHRINE 4MG/NS 250ML 250 ML IV SCH ×3 (04:44→17:45)
[2019-07-20] MEDS: MAGNESIUM 2GM PREMIX 50ML 50 ML IV PRN (05:32)
[2019-07-20] MEDS: MIDODRINE HCL 5 MG TABLET PO SCH ×3 (05:53→21:21)
[2019-07-20] MEDS: INSULIN GLARGINE 100 UNITS/ML 10 ML VIAL SQ SCH ×2 (06:34→21:15)
[2019-07-20] MEDS: CEFTAZIDIME PENTAHYDRATE 1 GM/VIAL IVP SCH ×2 (06:35→18:35)
[2019-07-20] MEDS ORDERED: EPINEPHRINE 1 MG/ML AMPULE ONE (07:49)
[2019-07-20] MEDS ORDERED: PROPOFOL 10 MG/ML 20ML VIAL IV ONE (07:56)
--- NOTE | 2019-07-20 08:15 | NUR ---
DR HOLLIS AT BEDSIDE, TO PERFORM SCHEDULED EGD, ENDO TEAM AT BEDSIDE TO ASSIST MD.
--- NOTE | 2019-07-20 08:35 | NUR ---
EGD COMPLETED, UNLABORED RESPIRATIONS NOTED, NO SIGNS OF DISTRESS NOTED.
[2019-07-20] MEDS: PANTOPRAZOLE 40 MG/VIAL IVP SCH ×2 (08:45→20:33)
[2019-07-20] MEDS: ARTIFICIAL TEARS 3.5 GM OINTMENT OU SCH ×2 (08:51→20:34)
[2019-07-20] MEDS: METOCLOPRAMIDE 10 MG/2 ML VIAL IVP SCH ×2 (08:51→20:33)
[2019-07-20] MEDS: IRON SUCROSE COMPLEX 100 MG in SODIUM CHLORIDE 0.9% 50 ML IV SCH (08:51)
[2019-07-20] MEDS: SODIUM BICARBONATE 650 MG TAB PO SCH ×4 (08:51→21:21)
[2019-07-20] MEDS: HONEY 1 APPL/ML TUBE TP SCH (08:52)
[2019-07-20] MEDS ORDERED: FAT EMULSIONS 20% 250ML 250 ML IV SCH (10:00)
[2019-07-20] MEDS: [UNRECOGNIZED DRUG - NUTRITION] IV SCH (11:55)
[2019-07-21] VITALS (71 sets, daily range): BP systolic 77–155; BP diastolic 25–67
--- NOTE | 2019-07-21 00:31 | NUR ---
Mitchell GANTCYTOGENETICIST NOTIFIED OF BLOOD GLUCOSE 444-NEW ORDER FOR EXTRA DOSE OF INSULIN IV 10 UNITS X 1 DOSE. CONTINUE SLIDING SCALE #2 COVERAGE Q4HR.
[2019-07-21] MEDS: INSULIN HUMULIN R 100 UNIT/ML 3ML SQ SCH ×6 (00:50→20:38)
[2019-07-21] MEDS: NOREPINEPHRINE 4MG/NS 250ML 250 ML IV SCH ×3 (00:57→16:07)
[2019-07-21] MEDS ORDERED: INSULIN HUMULIN R 100 UNIT/ML 3ML IV ONE (01:00)
[2019-07-21 04:45] LABS: CORRECTED WHITE BLOOD COUNT 12.2 K/uL (4.5-11.0); MEAN CORPUSCULAR HEMOGLOBIN 30.2 pg (27.0-33.0); MEAN CORPUSCULAR HGB CONC 32.8 g/dL (32.0-36.0); MEAN CORPUSCULAR VOLUME 92.2 fL (79-99); NUCLEATED RED BLOOD CELLS 11.9 % (0.0-0.19); PLATELET COUNT (AUTO) 135 K/uL (130-400); RED BLOOD CELL COUNT(AUTO) 2.27 MIL/uL (4.00-5.50); RED CELL DISTRIBUTION WIDTH 20.1 % (11.0-15.5); WHITE BLOOD COUNT (AUTO) 13.6 K/uL (4.8-10.8)
[2019-07-21 04:53] LABS: HEMATOCRIT 20.9 % (36-48)
[2019-07-21 04:57] LABS: CREATININE 2.4 mg/dL (0.5-1.5); MAGNESIUM 2.4 mg/dL (1.80-2.40)
[2019-07-21 05:21] LABS: BAND NEUTROPHILS % (MANUAL) 3 % (0-2); EOSINOPHILS % (MANUAL) 3 % (1-6); LYMPHOCYTES % (MANUAL) 11 % (22-44); MAN.DIFF COMMENT-IMPRESSION MANUAL DIFFERENTIAL; MONOCYTES % (MANUAL) 5 % (2-9); SEGMENTED NEUTROPHILS % 78 % (40-70)
[2019-07-21] MEDS: MIDODRINE HCL 5 MG TABLET PO SCH ×3 (05:49→21:32)
[2019-07-21] MEDS: CEFTAZIDIME PENTAHYDRATE 1 GM/VIAL IVP SCH (06:26)
[2019-07-21] MEDS: INSULIN GLARGINE 100 UNITS/ML 10 ML VIAL SQ SCH ×2 (06:27→20:34)
[2019-07-21] MEDS: IRON SUCROSE COMPLEX 100 MG in SODIUM CHLORIDE 0.9% 50 ML IV SCH (08:55)
[2019-07-21] MEDS: METOCLOPRAMIDE 10 MG/2 ML VIAL IVP SCH ×2 (08:56→20:30)
[2019-07-21] MEDS: PANTOPRAZOLE 40 MG/VIAL IVP SCH ×2 (08:56→20:30)
[2019-07-21] MEDS: SODIUM BICARBONATE 650 MG TAB PO SCH ×3 (09:00→20:30)
[2019-07-21] MEDS: ARTIFICIAL TEARS 3.5 GM OINTMENT OU SCH ×2 (09:07→20:31)
[2019-07-21] MEDS: HONEY 1 APPL/ML TUBE TP SCH (09:07)
[2019-07-21] MEDS: [UNRECOGNIZED DRUG - NUTRITION] IV SCH (12:05)
--- NOTE | 2019-07-21 15:07 | NUR ---
PAUL NOTIFICATION/ FOLLOW UP DX: UPPER GI BLEED, HEMORRHAGIC SHOCK. PT ON TPN. NOT TOLERATING TF- VITAL AF 1.2, RECOMMEND TO HOLD FEEDINGS DUE TO BLOOD WITH RESIDUALS. PT DOES NOT TOLERATE TF. SKIN: SACRUM ULCER, RIGHT PELVIC ULCER, 3+ PITTING EDEMA. CONSULT GI DUE TO GI BLEED. ADVANCE DIET WHEN CLEARED FROM GI. PT CONTINUES WITH RENAL FAILURE. RD RECOMMENDS TO CONTINUE TPN- CLINIMIX E 5/15 AT 75MLS/HR. REQUEST LIPID PANEL WEEKLY ON . PLEASE NOTIFY RD IF ANY CHANGES OCCUR MONITOR LABS AND TOLERANCE LABS: BUN 179, CRE 2.4, GFR 21, BG 444, PHOS 5 Addendum: 07/21/19 at [address] Amended: Links added.
[2019-07-21] MEDS ORDERED: SODIUM CHLORIDE 0.9% 10 ML VIAL ONE (20:27)
[2019-07-22] VITALS (28 sets, daily range): BP systolic 89–147; BP diastolic 39–69
[2019-07-22 00:07] LABS: HEMATOCRIT 26.6 % (36-48)
[2019-07-22] MEDS: NOREPINEPHRINE 4MG/NS 250ML 250 ML IV SCH ×3 (00:21→20:49)
[2019-07-22] MEDS: INSULIN HUMULIN R 100 UNIT/ML 3ML SQ SCH ×6 (00:26→20:39)
[2019-07-22 03:42] LABS: HEMATOCRIT 26.5 % (36-48); MEAN CORPUSCULAR HEMOGLOBIN 29.5 pg (27.0-33.0); MEAN CORPUSCULAR HGB CONC 32.8 g/dL (32.0-36.0); NUCLEATED RED BLOOD CELLS 3.6 % (0.0-0.19); PLATELET COUNT (AUTO) 107 K/uL (130-400); RED BLOOD CELL COUNT(AUTO) 2.95 MIL/uL (4.00-5.50); RED CELL DISTRIBUTION WIDTH 20.1 % (11.0-15.5); WHITE BLOOD COUNT (AUTO) 22.6 K/uL (4.8-10.8)
[2019-07-22 04:16] LABS: ALBUMIN 0.8 g/dL (3.5-5.0); CREATININE 2.3 mg/dL (0.5-1.5); MAGNESIUM 2.2 mg/dL (1.80-2.40); PHOSPHORUS 5.3 mg/dL (2.5-4.9); POTASSIUM 4.3 mmol/L (3.5-5.1)
[2019-07-22] MEDS: MIDODRINE HCL 5 MG TABLET PO SCH ×3 (06:43→21:04)
[2019-07-22] MEDS: INSULIN GLARGINE 100 UNITS/ML 10 ML VIAL SQ SCH ×2 (06:45→20:39)
[2019-07-22] MEDS: METOCLOPRAMIDE 10 MG/2 ML VIAL IVP SCH ×2 (08:29→20:49)
[2019-07-22] MEDS: IRON SUCROSE COMPLEX 100 MG in SODIUM CHLORIDE 0.9% 50 ML IV SCH (08:29)
[2019-07-22] MEDS: SODIUM BICARBONATE 650 MG TAB PO SCH ×3 (08:29→20:49)
[2019-07-22] MEDS: PANTOPRAZOLE 40 MG/VIAL IVP SCH ×2 (08:29→20:39)
[2019-07-22] MEDS: ARTIFICIAL TEARS 3.5 GM OINTMENT OU SCH ×2 (08:30→20:40)
[2019-07-22] MEDS: HONEY 1 APPL/ML TUBE TP SCH (08:30)
[2019-07-22] MEDS: FAT EMULSIONS 20% 250ML 250 ML IV SCH (08:54)
[2019-07-22 11:04] LABS: HEMATOCRIT 25.6 % (36-48)
[2019-07-22] MEDS: [UNRECOGNIZED DRUG - NUTRITION] IV SCH (13:14)
[2019-07-23] VITALS (27 sets, daily range): BP systolic 76–125; BP diastolic 33–68
[2019-07-23] MEDS: INSULIN HUMULIN R 100 UNIT/ML 3ML SQ SCH ×6 (00:10→20:00)
[2019-07-23 04:01] LABS: BASOPHILS % (AUTO) 0.5 % (0.0-5.0); EOSINOPHILS % (AUTO) 0.3 % (0.0-8.0); HEMATOCRIT 24.5 % (36-48); LYMPHOCYTES % (AUTO) 5.4 % (21.0-51.0); MEAN CORPUSCULAR HEMOGLOBIN 29.8 pg (27.0-33.0); MEAN CORPUSCULAR HGB CONC 32.8 g/dL (32.0-36.0); MEAN CORPUSCULAR VOLUME 90.9 fL (79-99); MONOCYTES % (AUTO) 4.8 % (3.0-13.0); NUCLEATED RED BLOOD CELLS 4.2 % (0.0-0.19); PLATELET COUNT (AUTO) 92 K/uL (130-400); RED BLOOD CELL COUNT(AUTO) 2.69 MIL/uL (4.00-5.50); RED CELL DISTRIBUTION WIDTH 20.2 % (11.0-15.5); WHITE BLOOD COUNT (AUTO) 21.9 K/uL (4.8-10.8)
[2019-07-23 04:10] LABS: CREATININE 2.3 mg/dL (0.5-1.5); MAGNESIUM 2.1 mg/dL (1.80-2.40); POTASSIUM 4.4 mmol/L (3.5-5.1)
[2019-07-23] MEDS: MIDODRINE HCL 5 MG TABLET PO SCH ×3 (05:53→21:29)
[2019-07-23] MEDS: HONEY 1 APPL/ML TUBE TP SCH (08:11)
[2019-07-23] MEDS: SODIUM BICARBONATE 650 MG TAB PO SCH ×3 (08:11→20:53)
[2019-07-23] MEDS: METOCLOPRAMIDE 10 MG/2 ML VIAL IVP SCH ×2 (08:11→20:52)
[2019-07-23] MEDS: ARTIFICIAL TEARS 3.5 GM OINTMENT OU SCH ×2 (08:11→20:56)
[2019-07-23] MEDS: INSULIN GLARGINE 100 UNITS/ML 10 ML VIAL SQ SCH ×2 (08:20→20:51)
[2019-07-23] MEDS: PANTOPRAZOLE 40 MG/VIAL IVP SCH ×2 (09:18→20:51)
[2019-07-23] MEDS: IRON SUCROSE COMPLEX 100 MG in SODIUM CHLORIDE 0.9% 50 ML IV SCH (09:19)
[2019-07-23] MEDS: NOREPINEPHRINE 4MG/NS 250ML 250 ML IV SCH (10:55)
[2019-07-23 14:39] LABS: HEMATOCRIT 24.2 % (36-48)
[2019-07-23] MEDS: [UNRECOGNIZED DRUG - NUTRITION] IV SCH (14:44)
[2019-07-23] MEDS ORDERED: NOREPINEPHRINE BITARTRATE 1 MG/1 ML ML IV ONE (19:32)
[2019-07-23] MEDS ORDERED: SODIUM CHLORIDE 0.9% 250 ML IV ONE (19:32)
[2019-07-24] VITALS (50 sets, daily range): BP systolic 76–129; BP diastolic 30–52
[2019-07-24] MEDS: INSULIN HUMULIN R 100 UNIT/ML 3ML SQ SCH ×6 (04:09→20:38)
[2019-07-24 04:34] LABS: BASOPHILS % (AUTO) 0.4 % (0.0-5.0); EOSINOPHILS % (AUTO) 0.3 % (0.0-8.0); HEMATOCRIT 23.8 % (36-48); LYMPHOCYTES % (AUTO) 7.1 % (21.0-51.0); MEAN CORPUSCULAR HEMOGLOBIN 29.6 pg (27.0-33.0); MEAN CORPUSCULAR VOLUME 92.6 fL (79-99); MONOCYTES % (AUTO) 7.6 % (3.0-13.0); NEUTROPHILS % (AUTO) 84.6 % (40.0-77.0); NUCLEATED RED BLOOD CELLS 2.7 % (0.0-0.19); PLATELET COUNT (AUTO) 104 K/uL (130-400); RED BLOOD CELL COUNT(AUTO) 2.57 MIL/uL (4.00-5.50); RED CELL DISTRIBUTION WIDTH 20.4 % (11.0-15.5); WHITE BLOOD COUNT (AUTO) 23.3 K/uL (4.8-10.8)
[2019-07-24 04:35] LABS: CREATININE 2.3 mg/dL (0.5-1.5); POTASSIUM 4.9 mmol/L (3.5-5.1)
[2019-07-24] MEDS: NOREPINEPHRINE 4MG/NS 250ML 250 ML IV SCH ×4 (04:47→23:26)
[2019-07-24] MEDS: MIDODRINE HCL 5 MG TABLET PO SCH ×3 (05:36→21:41)
[2019-07-24] MEDS: IRON SUCROSE COMPLEX 100 MG in SODIUM CHLORIDE 0.9% 50 ML IV SCH (08:21)
[2019-07-24] MEDS: PANTOPRAZOLE 40 MG/VIAL IVP SCH ×2 (08:21→19:58)
[2019-07-24] MEDS: SODIUM BICARBONATE 650 MG TAB PO SCH ×3 (08:21→20:39)
[2019-07-24] MEDS: METOCLOPRAMIDE 10 MG/2 ML VIAL IVP SCH ×2 (08:21→20:39)
[2019-07-24] MEDS: ARTIFICIAL TEARS 3.5 GM OINTMENT OU SCH ×2 (08:22→20:39)
[2019-07-24] MEDS: HONEY 1 APPL/ML TUBE TP SCH (08:22)
[2019-07-24] MEDS: INSULIN GLARGINE 100 UNITS/ML 10 ML VIAL SQ SCH ×2 (08:24→20:39)
[2019-07-24] MEDS: FLUCONAZOLE 200 MG/NS 100 ML 100 ML IV SCH (09:45)
[2019-07-24] MEDS: CEFTAZIDIME PENTAHYDRATE 1 GM/VIAL IVP SCH ×2 (09:45→19:58)
[2019-07-24] MEDS ORDERED: ACETAMINOPHEN ELIXIR 650 MG/20.3 ML UDCUP PEG PRN (11:45)
--- NOTE | 2019-07-24 12:30 | NUR ---
DR BOYER AT BEDSIDE. REVIEWED LABS, VS, MEDICATIONS AND CONDITION. NO NEW ORDERS. DR BOYER SPOKE TO FAMILY. FAMILY IS DISCUSSING POSSIBLE COMFORT CARE.
[2019-07-24] MEDS: [UNRECOGNIZED DRUG - NUTRITION] IV SCH (15:23)
[2019-07-25] VITALS (27 sets, daily range): BP systolic 95–145; BP diastolic 41–56
[2019-07-25] MEDS: INSULIN HUMULIN R 100 UNIT/ML 3ML SQ SCH ×5 (00:34→15:45)
[2019-07-25 03:54] LABS: MEAN CORPUSCULAR HEMOGLOBIN 30.4 pg (27.0-33.0); RED BLOOD CELL COUNT(AUTO) 2.46 MIL/uL (4.00-5.50)
[2019-07-25 04:07] LABS: CREATININE 2.3 mg/dL (0.5-1.5); POTASSIUM 5.7 mmol/L (3.5-5.1)
[2019-07-25] MEDS: NOREPINEPHRINE 4MG/NS 250ML 250 ML IV SCH ×3 (04:14→15:13)
[2019-07-25 04:18] LABS: MEAN CORPUSCULAR HGB CONC 32.5 g/dL (32.0-36.0); MEAN CORPUSCULAR VOLUME 93.7 fL (79-99); PLATELET COUNT (AUTO) 121 K/uL (130-400); RED CELL DISTRIBUTION WIDTH 22.4 % (11.0-15.5); WHITE BLOOD COUNT (AUTO) 26.6 K/uL (4.8-10.8)
[2019-07-25] MEDS: MIDODRINE HCL 5 MG TABLET PO SCH ×2 (05:06→13:14)
[2019-07-25] MEDS: INSULIN GLARGINE 100 UNITS/ML 10 ML VIAL SQ SCH (08:06)
[2019-07-25] MEDS: IRON SUCROSE COMPLEX 100 MG in SODIUM CHLORIDE 0.9% 50 ML IV SCH (08:14)
[2019-07-25] MEDS: FLUCONAZOLE 200 MG/NS 100 ML 100 ML IV SCH (08:14)
[2019-07-25] MEDS: SODIUM BICARBONATE 650 MG TAB PO SCH ×2 (08:15→13:14)
[2019-07-25] MEDS: PANTOPRAZOLE 40 MG/VIAL IVP SCH (08:15)
[2019-07-25] MEDS: METOCLOPRAMIDE 10 MG/2 ML VIAL IVP SCH (08:15)
[2019-07-25] MEDS: HONEY 1 APPL/ML TUBE TP SCH (08:15)
[2019-07-25] MEDS: ARTIFICIAL TEARS 3.5 GM OINTMENT OU SCH (08:16)
[2019-07-25] MEDS: CEFTAZIDIME PENTAHYDRATE 1 GM/VIAL IVP SCH (08:54)
[2019-07-25] MEDS: EPOETIN ALFA 10,000 UNIT/ML VIAL SQ SCH (09:00)
[2019-07-25] MEDS: [UNRECOGNIZED DRUG - NUTRITION] IV SCH ×2 (09:00→16:26)
--- NOTE | 2019-07-25 09:45 | NUR ---
PATIENT'S SON DERIK IN TO VISIT. STATES THE PLAN IS TO MAKE PATIENT COMFORT CARE ONLY TODAY. LORNE CONRAD WILL BE HERE TODAY TO SIGN PAPERWORK. INFORMED FAMILY THAT WE WILL ALLOW ADDITIONAL VISITORS DUE TO THE SITUATION. PASTORAL CARE INFORMED AND WILL VISIT PATIENT/FAMILY LATER TODAY.
[2019-07-25] MEDS: FAT EMULSIONS 20% 250ML 250 ML IV SCH (10:00)
--- NOTE | 2019-07-25 11:06 | NUR ---
TONY CALLED AT 1102. SPOKE TO SRAVAN. REF #[id number]. TONY PENDING A COORDINATOR CALL BACK.
--- NOTE | 2019-07-25 11:18 | NUR ---
SPOKE TO BILLY KELLER WITH [facility], BECAUSE PATIENT IS NOT BRAIN , SHE IS RULED OUT FOR ORGAN DONATION. PER BILLY KELLER, MAY REMOVE SUPPORT WHEN FAMILY IS READY AND CALL TO UPDATE THE REFERRAL LINE WITH CARDIAC TIME OF .
--- NOTE | 2019-07-25 13:45 | NUR ---
ALL WOUND CARE (EXCEPT BETADINE CAST TO LEFT FOOT) DONE DURING BATH AND LINEN CHANGE.
--- NOTE | 2019-07-25 14:58 | NUR ---
RD FOLLOW UP NOTE Pt remains on Clinmix 02/23 @83mls/hr. Family with possible withdrawal of care as per MD note. Pt LBM 07/24/19. Pt monitored labs: Na 135, K 5.7, CO2 14, Cr 2.3, GFR 22, Glu 151, Ca 7.6. RD to continue to monitor. Please notify PAUL as nutrition concerns arise. Addendum: 07/25/19 at [address] Amended: Links added.
[2019-07-25] MEDS ORDERED: LORAZEPAM 2 MG/ML 1 ML VIAL IVP PRN (17:30)
[2019-07-25] MEDS ORDERED: MORPHINE SULFATE 2 MG/ML 1ML SYG IVP PRN (17:30)
--- NOTE | 2019-07-25 21:42 | NUR ---
At 2130 withdrew life support as per doctors orders and family request placed on 40% ATC will continue to monitor. Addendum: 07/25/19 at [address] Amended: Links added.
--- NOTE | 2019-07-25 21:58 | NUR ---
SUMMONED BY STAFF TO PATIENTS ROOM. SEVERAL FAMILY MEMBERS AT BEDSIDE. PATIENT HOB UP 30 DEGREES. NO RESPIRATIONS, HEART TONES OR BLOOD PRESSURE NOTED ON AUSCULTATION. SEWAGE SCREEN OPERATOR SHOWING ASYSTOLE. PUPILS FIXED AND DILATED.
--- NOTE | 2019-07-25 22:00 | NUR ---
2109 HS GARCIA Hernandez informed Withdrawal of Life Support rescheduled from 6PM to 9 PM per Son w' POA request. Awaiting other family members. Emotiional support given. 2114 Withdrawal of Life Support signed per son w/POA. MS 2 mg given for patient comfort. 2129 Withdrawal of Life Support. Placed on 40% FI02 Trach Collar. Saturating 90%, HR-98. 2134 Family at bedside. 2157 Patient pronounced by GARCIA Hernandez.
--- NOTE | 2019-07-25 22:15 | NUR ---
HOSPITALIST CHUY STATON NOTIFIED OF PATIENT'S
--- NOTE | 2019-07-25 22:30 | NUR ---
TONY called per Philosophy Faculty Member GARCIA Hernandez
--- NOTE | 2019-07-25 23:00 | NUR ---
Home called per GARCIA RothTargeting Acquisition Officer- [facility] picked [facility] by home.
== END 2019-07-25 21:58 | disposition expired | DRG 870 ==
LOC: EDH 11:25 → EDHIP 14:00 → 2BH 15:20
PROVIDERS: ADMIT Internal Medicine; ATTEND Internal Medicine
PROC: 30233N1 Transfusion of Nonautologous Red Blood Cells into Peripheral Vein, Percutaneous Approach (ICD-10-PCS; 2019-07-11)
PROC: 5A1935Z Respiratory Ventilation, Less than 24 Consecutive Hours (ICD-10-PCS; 2019-07-11)
PROC: 5A1955Z Respiratory Ventilation, Greater than 96 Consecutive Hours (ICD-10-PCS; principal; 2019-07-12)
PROC: 0DJ08ZZ Inspection of Upper Intestinal Tract, Via Natural or Artificial Opening Endoscopic (ICD-10-PCS; 2019-07-12)
PROC: 0W3P8ZZ Control Bleeding in Gastrointestinal Tract, Via Natural or Artificial Opening Endoscopic (ICD-10-PCS; 2019-07-20)
DX: A41.50 Gram-negative sepsis, unspecified (principal); J96.21 Acute and chronic respiratory failure with hypoxia; E43 Unspecified severe protein-calorie malnutrition; R65.21 Severe sepsis with septic shock; K55.21 Angiodysplasia of colon with hemorrhage; K25.4 Chronic or unspecified gastric ulcer with hemorrhage; J15.6 Pneumonia due to other Gram-negative bacteria; N17.9 Acute kidney failure, unspecified; J44.0 Chronic obstructive pulmonary disease with (acute) lower respiratory infection; I50.22 Chronic systolic (congestive) heart failure; N18.5 Chronic kidney disease, stage 5; I13.2 Hypertensive heart and chronic kidney disease with heart failure and with stage 5 chronic kidney disease, or end stage renal disease; D62 Acute posthemorrhagic anemia; E11.52 Type 2 diabetes mellitus with diabetic peripheral angiopathy with gangrene; G93.40 Encephalopathy, unspecified; I82.403 Acute embolism and thrombosis of unspecified deep veins of lower extremity, bilateral; N39.0 Urinary tract infection, site not specified; Z99.11 Dependence on respirator [ventilator] status; Z16.24 Resistance to multiple antibiotics; R57.8 Other shock; Z89.611 Acquired absence of right leg above knee; E11.22 Type 2 diabetes mellitus with diabetic chronic kidney disease; L89.150 Pressure ulcer of sacral region, unstageable; E66.9 Obesity, unspecified; E87.6 Hypokalemia; F79 Unspecified intellectual disabilities; I25.10 Atherosclerotic heart disease of native coronary artery without angina pectoris; I25.2 Old myocardial infarction; R13.12 Dysphagia, oropharyngeal phase; Z95.828 Presence of other vascular implants and grafts; Z95.1 Presence of aortocoronary bypass graft; Z93.0 Tracheostomy status; Z80.0 Family history of malignant neoplasm of digestive organs; Z66 Do not resuscitate; Z74.01 Bed confinement status; Z88.1 Allergy status to other antibiotic agents; Z88.0 Allergy status to penicillin; Z88.8 Allergy status to other drugs, medicaments and biological substances; Y95 Nosocomial condition; Z68.36 Body mass index [BMI] 36.0-36.9, adult
CPT/HCPCS: 36415; 36430; 36600; 43235; 43255; 71045; 80048; 80053; 80061; 80076; 80202; 82040; 82140; 82803; 82947; 82948; 83540; 83550; 83605; 83615; 83735; 84100; 84132; 84145; 84484; 85014; 85018; 85025; 85027; 85610; 85730; 86850; 86900; 86901; 86922; 87040; 87071; 87077; 87186; 87205; 87324; 93005; 94002; 94003; 99291; A4330; C9113; G0378; J0171; J0713; J0885; J1170; J1450; J1756; J1815; J2185; J2704; J2765; J2997; J3010; J3370; J3475; J3480; J3490; J7030; J7070; P9016